=== PATIENT | male | born 1965 | race Caucasian/White ===

== ENCOUNTER 2024-04-13 12:06 | Day surgery (SDC) | payer OTHER ==
[~2024-04-13] VITALS: Ht 188 cm; Wt 154.1 kg
[~2024-04-13 12:06] MED LIST: EZET10TA58 PO; FISH120012 PO; KP F1200 PO; LOSA25TA13 PO; NASOCORT; SPIR1TAB34 PO; VITA100093 PO; VITA200025 PO; VITACAP8 PO
[2024-04-13] MEDS: NS 1,000 ML IV ONE (13:05)
[2024-04-13] MEDS ORDERED: LIDOCAINE 2% 100MG/5ML SDV (FOR ANES.) As Ordered ONE (13:06)
[2024-04-13] MEDS ORDERED: propofoL 200 MG/20 ML VIAL As Ordered ONE (13:06)
[2024-04-13 14:37] VITALS: TEMP 96.8
[2024-04-13 14:59] VITALS: BP 123/71; O2SAT 97
== END 2024-04-13 15:02 | disposition home or self-care (01) ==
LOC: M OPP 12:06
PROVIDERS: ATTEND Surgery
DX: Z12.11 Encounter for screening for malignant neoplasm of colon (principal); Z86.010 Personal history of colon polyps; D12.6 Benign neoplasm of colon, unspecified; K57.30 Diverticulosis of large intestine without perforation or abscess without bleeding; G47.30 Sleep apnea, unspecified; Z99.89 Dependence on other enabling machines and devices; Z79.899 Other long term (current) drug therapy